=== PATIENT | female | born 1980 | race Caucasian/White ===

== ENCOUNTER 2018-08-10 15:55 | Emergency (ER) | payer OTHER ==
[~2018-08-10] VITALS: Ht 162.6 cm; Wt 74.8 kg
[2018-08-10 16:05] VITALS: Ht 162.6 cm; Wt 74.8 kg
[2018-08-10 17:16] VITALS: BP 101/60
== END 2018-08-10 17:16 | disposition home or self-care (01) ==
LOC: ED 15:55
DX: S83.91XA Sprain of unspecified site of right knee, initial encounter (principal); Z88.0 Allergy status to penicillin; W01.0XXA Fall on same level from slipping, tripping and stumbling without subsequent striking against object, initial encounter; Y93.89 Activity, other specified; Y92.89 Other specified places as the place of occurrence of the external cause; Y99.8 Other external cause status
CPT/HCPCS: Q0092

== ENCOUNTER 2018-08-10 20:50 | Emergency (ER) | payer OTHER ==
[~2018-08-10] VITALS: Ht 152.4 cm; Wt 74.8 kg
[2018-08-10 21:27] VITALS: Ht 152.4 cm; Wt 74.8 kg
[2018-08-10 23:08] LABS: BASOPHIL % 0.2 % (0-2); PLATELET COUNT 246 x10^3mcL (130-400); RED CELL DISTRIBUTION WIDTH 14.8 % (11.5-14.5)
[2018-08-10 23:21] LABS: CALCIUM 8.6 mg/dL (8.5-10.1); CARBON DIOXIDE 30.1 mmol/L (21-32); CHLORIDE SERUM 105 mmol/L (98-107); CREATININE SERUM 0.8 mg/dL (0.6-1.0); GFR1 > 60 mL/min; GLUCOSE SERUM 107 mg/dL (74-106); POTASSIUM SERUM 3.7 mmol/L (3.5-5.1); SODIUM SERUM 140 mmol/L (136-145)
[2018-08-10 23:26] LABS: ALBUMIN 3.4 g/dL (3.4-5.0); ALKALINE PHOSPHATASE 56 U/L (46-116); ALT/SGPT 28 U/L (14-59); AST/SGOT 19 U/L (15-37); BILIRUBIN TOTAL 0.28 mg/dL (0.20-1.00); CHOLESTEROL 173 mg/dL (<200); HDL CHOLESTEROL 36 mg/dL (40-60); PHOSPHOROUS 2.9 mg/dL (2.5-4.9); TOTAL PROTEIN, SERUM 7.2 g/dL (6.4-8.2); URIC ACID 6.3 mg/dL (2.6-6.0)
[2018-08-11 00:20] VITALS: BP 105/60
== END 2018-08-11 00:30 | disposition home or self-care (01) ==
LOC: ED 20:50
PROVIDERS: Emergency Medicine
DX: R55 Syncope and collapse (principal); Z11.2 Encounter for screening for other bacterial diseases; Z88.0 Allergy status to penicillin
CPT/HCPCS: J1885; J7030; Q0092

== ENCOUNTER 2019-07-26 10:11 | Emergency (ER) | payer SELFPAY ==
[~2019-07-26] VITALS: Ht 154.9 cm; Wt 75.3 kg
[2019-07-26 10:18] VITALS: Ht 154.9 cm; Wt 75.3 kg
[2019-07-26 11:38] VITALS: BP 106/62
== END 2019-07-26 11:38 | disposition home or self-care (01) ==
LOC: ED 10:11
DX: S83.001A Unspecified subluxation of right patella, initial encounter (principal); Z88.0 Allergy status to penicillin; W06.XXXA Fall from bed, initial encounter; Y93.89 Activity, other specified; Y92.89 Other specified places as the place of occurrence of the external cause; Y99.8 Other external cause status

== ENCOUNTER 2020-08-05 20:22 | Emergency (ER) | payer OTHER ==
[~2020-08-05] VITALS: Ht 152.4 cm; Wt 74.6 kg
[2020-08-05] MEDS ORDERED: IBU600 M2 PO (21:32)
[2020-08-05 22:11] VITALS: BP 139/74
== END 2020-08-05 22:11 | disposition home or self-care (01) ==
LOC: ED 20:22
DX: S60.132A Contusion of left middle finger with damage to nail, initial encounter (principal); Z88.0 Allergy status to penicillin; W22.8XXA Striking against or struck by other objects, initial encounter; Y93.89 Activity, other specified; Y92.89 Other specified places as the place of occurrence of the external cause; Y99.8 Other external cause status
CPT/HCPCS: J2001